=== PATIENT | male | born 1975 | race Caucasian/White ===

== ENCOUNTER 2016-06-07 20:20 | Emergency (ER) | payer BC ==
[~2016-06-07] VITALS: Ht 177.8 cm; Wt 140.6 kg
[2016-06-07] MEDS ORDERED: FENTANYL PF 100 MCG/2 ML VIAL. IV PRN (21:15)
[2016-06-07] MEDS ORDERED: KETOROLAC 30 MG/ML VIAL. IV ONE (21:15)
[2016-06-07] MEDS ORDERED: ONDANSETRON PF 4 MG/2 ML VIAL. IV ONE (21:15)
--- NOTE | 2016-06-07 21:22 | RAD ---
PROCEDURE CT abdomen pelvis without contrast. HISTORY Severe left flank pain with nausea today TECHNIQUE Noncontrast CT imaging was performed and pelvis, multiplanar reconstruction images submitted. Exposure: One or more of the following individualized dose reduction techniques were utilized for this exam: 1. Automated exposure control. 2. Adjustment of the mA and/or kV according to patient size. 3. Use of iterative reconstruction technique. COMPARISON None FINDINGS There is mild left hydronephrosis, 4 millimeter calculus just beyond the left ureteropelvic junction. There are 6 small calculi of the mid to inferior left kidney, largest on the order of 2 millimeters. There are possibly a couple of a couple punctate inferior right renal calculi. There is no right hydronephrosis. Accurate evaluation of bowel is limited without oral contrast. There is no significant bowel dilatation, free air, free fluid. Gallbladder is present, small gallstone present. There is no adrenal nodularity. There is no obvious focal abnormality of the liver, spleen, or pancreas allowing for the noncontrast technique. There is no abnormality of the limited visualized lung bases. Mild prominence of the urinary bladder ellsworth may be due to incomplete distension. IMPRESSION 1. There is mild left hydronephrosis, 4 millimeter calculus just beyond the left ureteropelvic junction. There are small left renal calculi, possibly a couple of punctate right renal calculi. 2. There is cholelithiasis. Electronically signed by: Lavelle Conde MD (June 07, 2016 21:22:04)
--- NOTE | 2016-06-07 21:25 | PHYS DOC ---
General Chief Complaint: FLANK PAIN Stated Complaint: LEFT FLANK PAIN Time Seen by MD: 20:54 Source: patient Exam Limitations: no limitations Problems: History of Present Illness Initial Comments Pt is 40/M to ED c/o left flank pain. Pt states sudden onset severe left flank pain and nausea began one hour ago. Pt has h/o kidney stones, feels sx the same. No dysuria/frequency/odor, no fever/chills/myalgias. No prearrival treatment. Timing/Duration: 1 hour Severity: severe Modifying Factors: improves with other Associated Symptoms: nausea/vomiting, other Allergies: Coded Allergies: No Known Drug Allergies (Unverified , 06/07/16) Past Medical History Medical History: other (DM, HTN, kidney stones) Surgical History: no surgical history Social History Smoker: non-smoker Alcohol: occasionally Drugs: none Review of Systems Constitutional: denies chills, denies fever, denies malaise Respiratory: denies cough, denies shortness of breath Cardiovascular: denies chest pain, denies palpitations Gastrointestinal: see HPI Genitourinary: see HPI Musculoskeletal: see HPI Psychiatric/Neurological: denies headache, denies numbness, denies paresthesia Physical Exam General Appearance: mild distress, obese Ear, Nose, Throat: hearing grossly normal, normal ENT inspection Neck: non-tender, supple Respiratory: normal breath sounds, no respiratory distress Cardiovascular: normal peripheral pulses, regular rate, rhythm Gastrointestinal: normal bowel sounds, non tender, soft Back: no CVA tenderness, no vertebral tenderness Extremities: non-tender, normal inspection Neurologic/Psychiatric: nut orchardist II-XII nml as tested, no motor/sensory deficits, alert, normal mood/affect, oriented x 3 Skin: normal color, warm/dry Orders, Labs, Meds PATIENT: MIGUEL MAURICIO ACCOUNT: [id number] : 1975 LOCATION: ER AGE: 40 SEX: M EXAM STATUS: REG ER ORD. PHYSICIAN: JAVIER OBANDO DO REASON: Severe left flank pain with nausea today. Hx: Kidney stones PROCEDURE: CT ABDOMEN PELVIS WO CONTRAST PROCEDURE CT abdomen pelvis without contrast. HISTORY Severe left flank pain with nausea today TECHNIQUE Noncontrast CT imaging was performed and pelvis, multiplanar reconstruction images submitted. Exposure: One or more of the following individualized dose reduction techniques were utilized for this exam: 1. Automated exposure control. 2. Adjustment of the mA and/or kV according to patient size. 3. Use of iterative reconstruction technique. COMPARISON None FINDINGS There is mild left hydronephrosis, 4 millimeter calculus just beyond the left ureteropelvic junction. There are 6 small calculi of the mid to inferior left kidney, largest on the order of 2 millimeters. There are possibly a couple of a couple punctate inferior right renal calculi. There is no right hydronephrosis. Accurate evaluation of bowel is limited without oral contrast. There is no significant bowel dilatation, free air, free fluid. Gallbladder is present, small gallstone present. There is no adrenal nodularity. There is no obvious focal abnormality of the liver, spleen, or pancreas allowing for the noncontrast technique. There is no abnormality of the limited visualized lung bases. Mild prominence of the urinary bladder ellsworth may be due to incomplete distension. IMPRESSION 1. There is mild left hydronephrosis, 4 millimeter calculus just beyond the left ureteropelvic junction. There are small left renal calculi, possibly a couple of punctate right renal calculi. 2. There is cholelithiasis. Electronically signed by: Javier Arenas MD (June 07, 2016 21:22:04) DICTATED AND SIGNED BY: JEFF ARENAS MD DATE: 06/07/162120 CC: DEONDRE OQUENDO MD; JAVIER OBANDO DO ~ WBC 12.5, BUN 18, Cr 1.4, glu 157, UA +blood I discussed findings with pt. Obstruction no UTI, will d/c home see departure. Departure Time of Disposition: 22:30 Disposition: 01 HOME, SELF-CARE Diagnosis: 4mm left ureterolithiasis with hydronephrosis Condition: STABLE Patient Instructions: Diet for Kidney Stones, Kidney Stones, [id number] Additional Instructions: Work/school excuse this week as needed. Rest, drink plenty of fluids. No driving while taking norco. Rx: cephalexin, zofran odt, flomax, norco 10mg #30 You will need to follow up with a urologist. ED staff will give you contact information Rosa Mendoza and Javier. Call tomorrow to schedule appointment. Return to ED with new or changing symptoms. JAVIER OBANDO DO June 07, 2016 21:25
[2016-06-07] MEDS: FENTANYL PF 100 MCG/2 ML VIAL. IV PRN ×2 (21:37→22:50)
[2016-06-07] MEDS ORDERED: IV NORMAL SALINE 50ML 50 ML ONE (21:41)
[2016-06-07] MEDS ORDERED: CEFTRIAXONE SODIUM 1 GM VIAL IV ONE (21:41)
[2016-06-07 21:43] LABS: BASO # 0.1 x10^3/uL (0.0-0.2); BASO % 1 % (0-3); EOS # 0.3 x10^3/uL (0.0-0.7); EOS % 3 % (0-3); HEMOGLOBIN 14.4 g/dL (13.0-17.5); LYMPH # 2.8 x10^3/uL (1.0-4.8); LYMPH % 23 % (24-48); MEAN CORPUSCULAR HEMOGLOBIN 30 pg (25-35); MEAN CORPUSCULAR HGB CONC 34 g/dL (31-37); MEAN CORPUSCULAR VOLUME 88 fL (79-100); MONO % 8 % (0-9); NEUT # 8.2 x10^3uL (1.8-7.7); NEUT % 65 % (31-73); PLATELET COUNT 219 x10^3/uL (140-400); RED CELL DISTRIBUTION WIDTH 13.8 % (11.5-14.5); WHITE BLOOD COUNT 12.5 x10^3/uL (4.0-11.0)
[2016-06-07 21:56] LABS: ALBUMIN 3.8 g/dL (3.4-5.0); CREATININE 1.4 mg/dL (0.7-1.3); DIRECT BILIRUBIN 0.1 mg/dL (0.0-0.2); GFR 56.1; POTASSIUM 3.9 mmol/L (3.5-5.1); TOTAL BILIRUBIN 0.3 mg/dL (0.2-1.0); TOTAL PROTEIN 7.4 g/dL (6.4-8.2)
[2016-06-07] MEDS ORDERED: CEFTRIAXONE SODIUM 1 GM in IV NORMAL SALINE 50ML 50 ML IV ONE (22:00)
[2016-06-07 22:15] LABS: BILIRUBIN,URINE NEG (NEG); CLARITY,URINE CLEAR; COLOR,URINE YELLOW; GLUCOSE,URINE NEG (NEG); NITRITE,URINE NEG (NEG); UROBILINOGEN,URINE 0.2 mg/dL (0.2 mg/dL)
[2016-06-07 22:16] LABS: BACTERIA,URINE 0 /HPF (0-FEW); RBC,URINE >40 /HPF (0-2)
[2016-06-07] MEDS ORDERED: ONDA4TAB10 PO (22:29)
[2016-06-07] MEDS ORDERED: TAMS0.4C97 PO (22:29)
[2016-06-07] MEDS ORDERED: HYDR-963 PO (22:29)
[2016-06-07] MEDS ORDERED: CEPH500C PO (22:29)
[2016-06-07 23:00] VITALS: BP 143/76
== END 2016-06-07 23:00 | disposition home or self-care (01) ==
LOC: ER 20:27
DX: N13.2 Hydronephrosis with renal and ureteral calculous obstruction (principal); E11.9 Type 2 diabetes mellitus without complications; I10 Essential (primary) hypertension
CPT/HCPCS: 36415; 74176; 80048; 80076; 81001; 83690; 85027; 96365; 96375; 96376; 99285; J0696; J1885; J2405; J3010